=== PATIENT | male | born 1950 | race Caucasian/White ===

== ENCOUNTER 2017-05-26 16:00 | Emergency (ER) | payer OTHER ==
[~2017-05-26] VITALS: Ht 175.3 cm; Wt 63.5 kg
[~2017-05-26 16:00] MED LIST: ASPIR 8181 MG PO; BISACODYL SUPP10 MG RECTAL; COLACE100 MG PO; DEPAKOTE 250MG250 M1 PO; ENOXAPARIN40 MG/0.1 SUBQ; LORAZEPAM 22 MG/1 ML IM; MAG-AL PLUS SUS30 ML PO; MILK OF MA2400 MG/10 PO; SENNA8.6 MG PO; TYLENOL325 MG PO; VALPROIC A250 MG/51 PO; VITAMIN B-1100 M1 PO; ZYPREXA ZYDIS5 MG PO; ZYPREXA10 MG/VIAL IM
== END 2017-05-26 17:37 | disposition home or self-care (01) ==
LOC: ER 16:00
DX: S50.11XA Contusion of right forearm, initial encounter (principal); W18.39XA Other fall on same level, initial encounter; Y93.89 Activity, other specified; Y92.89 Other specified places as the place of occurrence of the external cause; Y99.8 Other external cause status; J44.9 Chronic obstructive pulmonary disease, unspecified; F10.99 Alcohol use, unspecified with unspecified alcohol-induced disorder; Z86.73 Personal history of transient ischemic attack (TIA), and cerebral infarction without residual deficits; Z86.69 Personal history of other diseases of the nervous system and sense organs; Z79.82 Long term (current) use of aspirin